=== PATIENT | female | born 1985 | race Caucasian/White ===

== ENCOUNTER 2016-08-23 03:18 | Observation (INO) | payer OTHER ==
[~2016-08-23] VITALS: Ht 170.2 cm; Wt 80.3 kg
[~2016-08-23 03:18] MED LIST: ALPRAZOLAM0.5 M4 PO; CYMBALTA60 M1 PO; GABAPENTIN300 M2 PO; VALTREX1000 MG PO; VICODIN 5-3001 EACH PO; XANAX0.5 M1 PO
--- NOTE | 2016-08-23 10:41 | Operative Report ---
Operative/Inv Procedure Report Surgery Date: 08/23/16 Name of Procedure: 1. Exploration of prior C6/7 ACDF 2. C5/6 ACDF with synthes PEEK cage, autograft, allograft, vectra titanium plate /screws Pre-Operative Diagnosis: C5/6 HNP with stenosis, myelopathy Post-Operative Diagnosis: same Estimated Blood Loss: less than 50ml Surgeon/Fluid Designer: BRIAN ROSA,Brian Santos MD Anesthesia: general endotracheal tube Monitors: neurophysiologic monitoring IV Fluids: 1 L crystalloid Implants: synthes Urine Output: 20cc via do Drains: small HALLIE Specimens: C5/6 disc material Complications: none Condition: stable Operative Indication: 31 yo s/p prior C6/7 ACDF who did very well but now presents with progressive central C5/6 HNP and new stenosis with cord compression and recurrent clinical myelopathy here for C5/6 ACDF, exploration of prior fusion. Operative/Procedure Note Note: Patient was taken the operating room. After appropriate patient identification, neurophysiologic monitoring leads were placed and baseline recordings were obtained. The patient underwent an fiberoptic intubation with a Nims tube with the neck in a neutral position. Following intubation. Monitoring was stable. The patient was positioned supine on the operating table with the neck gently extended on a donut and the shoulders retracted downward with tape. Following positioning, monitoring was rechecked and noted to be stable. Patient was given 2 g of IV kefzol in preoperative prophylaxis. A Do catheter was sterilely inserted. DVT prophylaxis was utilized throughout the case. The right ventral neck was widely prepped and draped in usual sterile fashion using povoiodine solution. Previous approach was via the left neck and both vocal cords were noted to be equally mobile on preop laryngoscopy. A transverse linear skin incision was marked beginning in the midline and extending to the left a proximally 3 cm. The C-arm fluoroscope was sterilely draped in the field and we confirmed that the planned incision was immediately overlying the C5/6 interspace. The skin was infiltrated with local anesthetic. Skin incision was made with a 10 blade knife dissection was carried down through the subcutaneous tissue with the Bovie to the platysma muscle. The platysma was elevated and divided. Subplatysmal planes were created rostrally and caudally to facilitate tissue mobilization. The medial aspect of the sternocleidomastoid muscle was identified. The overlying fascia was incised in a rostral caudal fashion. A combination of digital and blunt dissection was used medial to the sternocleidomastoid and lateral to the trachea and esophagus down to the prevertebral fascia. The carotid sheath was identified and retracted laterally under hand-held retractor. The crossing omohyoid muscle was reflected caudally. The prevertebral fascia was incised and swept off the ventral aspect of the vertebral bodies with a peanut. Disc spaces were identified. The previous surgical level had overlying scar which was cleared. The fusion was explored and noted to be solid. A small gauge spinal needle was placed superficially within the next rostral disc space and a lateral localizing x-ray was obtained and confirmed this to be the correct level. With the correct level verified, the disc space was marked with the Bovie and the longus coli muscles were reflected bilaterally. Self-retaining retractors were placed beneath the muscle. Once the retractors were in position, the endotracheal cuff was deflated and slowly reinflated against the retractors to minimize tracheal wall pressure. An annulotomy of C5/6 was performed with a 15 blade knife and a superficial discectomy was done with small straight and angled curettes and pituitary rongeurs. The osteophytes were removed with a [place] rongeur and the bone saved for subsequent arthrodesis to the back table. Milton pins were placed in the midpoint of the C5 and C6 vertebral bodies in the disc space was gently distracted under direct and fluoroscopic guidance. Following distraction of the disc space, neurophysiologic monitoring was rechecked and noted to be stable. Discectomy at C5/6 was completed under the scope using combination of small straight and angled curettes and pituitary rongeurs. The posterior longitudinal ligament was sequentially divided and removed with a 2mm Kerrison punch until an excellent decompression of the underlying thecal sac was accomplished from proximal foramen to proximal foramen. Once removal of all the disc material, the dural sac appeared nicely decompressed and we were able to appreciate CSF pulsations through a translucent dura. Once the decompression was completed, meticulous hemostasis was achieved using Surgifoam in the epidural space and a cottonoid vandana. All cartilaginous endplates were removed from C5 and C6 using combination of curettes and the Midas Quinn drill to prepare them for arthrodesis. Following the decompression, neurophysiologic monitoring was rechecked and noted to be stable. We then proceeded to arthrodesis and placement of the instrumentation. After appropriate trials, a 7 mm Synthes peek cage was selected and filled with demineralized bone matrix and morselized autograft from the osteophytectomy and gently tamped the cage into the C5/6 disc space under direct and fluoroscopic guidance and countersunk one or two mm. Once the cage was in position, we proceeded with placement of the screws. The Milton retractor was released compressing the cage between the respective vertebral bodies in the Milton pins were removed. A small amount of bone bleeding was easily controlled with bone wax. Four 14 mm screws were placed in the C5 and C6 vertebral body after piercing the bone with an awl and placing self drilling, self tapping screws. The screws were finally tightened applying the locking mechanism at 4 locations. Final x-rays were obtained and saved and showed excellent position of the interbody cage and instrumentation. The retractors were removed. Hand-held retractors were then placed back into the wound which was inspected and meticulous hemostasis is achieved prior to wound closure. A small HALLIE drain was placed into the wound and secured to the skin with a 2-0 nylon suture. The platysma muscle was reapproximated with interrupted 3-0 Vicryl suture. Skin was closed in layers with interrupted 3-0 Vicryl suture in the dermis and a running 4-0 Vicryl subcutaneous stitch in the skin. The wound was cleaned and dried. Steri-Strips and a sterile occlusive dressing was placed. The patient was placed in a cervical collar. She was awakened in the operating room, extubated, and taken to PACU in stable condition. She was noted to be moving all 4 extremities at the completion of the case. All sponge needle and instrument counts are correct at the completion of procedure 3. Neurophysiologic monitoring was stable throughout the case. Discharge Disposition: PACU skin. The wound was cleaned and dried. Steri-Strips and a sterile occlusive dressing was placed. The patient was placed in a soft cervical collar. She was awakened in the operating room, extubated, and taken to PACU in stable condition. She was noted to be moving all 4 extremities at the completion of the case. All sponge needle and instrument counts are correct at the completion of procedure 3. Neurophysiologic monitoring was stable throughout the case.
--- NOTE | 2016-08-23 11:01 | Operative Report ---
Operative/Inv Procedure Report Surgery Date: 08/23/16 Name of Procedure: C5/6 acdf, use of synthese intravertebral biomechanical device, anterior plating system, autograft, allograft, flouroscope, exploration of C6/7 fusion Pre-Operative Diagnosis: C5/6 hnp Post-Operative Diagnosis: same Estimated Blood Loss: less than 50ml Surgeon/First Officer: BRIAN ptit MD,SOLOMON Moreland Anesthesia: general endotracheal tube Operative/Procedure Note Note: After the successful administration of general endotracheal anesthesia all lines tubes and monitors were placed and the anesthesia team positioned the patient supine with her head gently extended and the skin incision the right anterior neck using the fluoroscope to plan the incision in the one of the skin creases. The patient was then prepped and draped in usual standard fashion and lidocaine with epinephrine was infiltrated in the subcutaneous tissues. A knife was used to make an incision in the right anterior neck this was deepened with Bovie cautery through the platysma, and dissection was carried down medial to the carotid sheath lateral to the trachea and esophagus. We identified the old anterior cervical plating system and dissected cranially elevated the longus coli bilaterally. We inspected the old ACDF site both visually and under the radiograph ensured there was a solid arthrodesis. We then placed [place] pins in the bodies of C5 and C6 provided gentle in-line distraction we used a 15 blade to incise the annulus remove the disc in totality with pituitaries and curettes. We used Kerrison punches to remove any anterior posterior osteophytes and saved for bone graft. We elevated the PLL and resected using a Kerrison punch. We were able to visualize the thecal sac ensured was thoroughly decompressed, we used a high-speed drill to remove any of the bony and cartilaginous endplates. We then trialed a 7 mm spacer fluoroscopic guidance this was the appropriate size was prepacked with morselized autograft and D mineralized bone matrix putty. We then secured a 14 mm plate with 16 mm screws, all hardware in excellent position based on the radiographs. Motors and sensors were stable. Bleeding was to minimum. The retractors were removed and the wound through separate stab incision a drain was left. The wound was then closed in layers, and the dry sterile dressing was applied. At the end the case all needle counts sponge and instrument correct, the patient was taken to recovery room in stable condition.
[2016-08-23 13:00] VITALS: BP 120/68
[2016-08-23 14:12] VITALS: BP 120/74
--- NOTE | 2016-08-23 14:44 | Admission Core Measures ---
Admission Lab Results I reviewed the following labs: Laboratory Tests 08/24 615 Urines Urine Test NEGATIVE Admission Meds I reviewed the following Meds: Current Medications Sig/Jack Start time Last Medication Dose Stop Time Status Admin Acetaminophen 650 MG Q4P PRN 08/23 1030 AC (Tylenol) Bisacodyl 10 MG DAILY NEEDED PRN 08/23 1030 AC (Dulcolax Supp) Cefazolin Sodium 2,000 MG ONCE 08/23 0000 NR (Kefzol-Ancef Inj) 08/23 2359 Diazepam 5 MG Q8P PRN 08/23 1030 AC (Valium) Docusate Sodium 100 MG BID 08/23 2200 AC (Colace) Famotidine 20 MG BID 08/23 2200 AC (Pepcid) Heparin Sodium 5,000 UNIT Q8 08/24 0600 AC (Porcine) Ondansetron HCl 4 MG Q6P PRN 08/23 1030 AC (Zofran) Oxycodone/ 2 TAB Q4P PRN 08/23 1030 AC 08/23 Acetaminophen 1244 (Percocet) Sodium Chloride 1,000 ML Q12H 08/23 1015 AC 08/23 (Normal Saline 0.9%) 08/24 1014 1213 Trimethobenzamide HCl 200 MG Q6P PRN 08/23 1030 AC (Tigan) Zolpidem Tartrate 2.5 MG AT BEDTIME NEED.. 08/23 1030 AC (Ambien) Acute Coronary Syndrome Inclusion Criteria ACS Diagnosis No Inpatient Core Measures LDL Reminder: If No, please order W/I first 24hr of stay Congestive Heart Failure Inclusion Criteria CHF Diagnosis No Cerebrovascular accident Inclusion Criteria CVA/TIA Diagnosis No Inpatient Core Measures Bedside Swallow Eval Reminder: If BSE failed, place ST order Antithrombotic Reminder: Order Antithrombotic Medication by end of day 2 Antithrombotic Reminder: Document Reason Antithrombotic Not ordered by end of day 2 AFIB/Flutter Reminder: If Present, add to problem list AFIB/Flutter Reminder: Order Anticoag Medication for pts with AFIB/Flutter Atherosclerosis Reminder: If Present, add to problem list LDL Reminder: If No, please order W/I first 24hr of stay PT Order Reminder: If No, please order Venous thromboembolism Inpatient Core Measures VTE Risk Factors: Surgery No Mech VTE prophylaxis d/t No contraindications No VTE Pharm Prophylaxis d/t Surgical contraindication Inclusion Criteria - Per Current guidelines, there needs to be overlap - treatment for the first 5 days of Warfarin therapy. - Parenteral Anticoagulation (IV or SC) needs to be - given along with Warfarin therapy. VTE Diagnosis No VTE Type NONE VTE Confirmed by (Test) NONE Problem List As ranked by this Provider includes Assessment & Plan 1. HNP (herniated nucleus pulposus), cervical 2. S/P cervical spinal fusion HOME MEDS Home Med List Alprazolam 0.5 MG TABLET 1 TAB PO PRN ANXIETY (Reported) Alprazolam (Xanax) 0.5 MG TABLET 0.5 MG PO D ANXIETY (Reported) Duloxetine HCl (Cymbalta) 60 MG CAPSULE.DR 1 CAP PO DAILY DEPRESSION ( Reported) Duloxetine HCl (Cymbalta) 60 MG CAPSULE.DR 1 TAB PO D DEPRESSION (Reported) Gabapentin 300 MG CAPSULE 1 TAB PO D NEUROPATHUY (Reported) Hydrocodone/Acetaminophen (Vicodin 5-300 MG Tablet) (Unknown Strength) TABLET (Unknown Dose) PO PRN PAIN (Reported) Hydrocodone/Acetaminophen (Vicodin 5-300 MG Tablet) 5 MG-300 MG TABLET 1 TAB PO PRN PRN PAIN (Reported) Hydrocodone/Acetaminophen (Vicodin 5-300 MG Tablet) 1 EACH TABLET 1-2 TAB PO Q4P PRN PAIN Valacyclovir HCl (Valtrex) 1,000 MG TABLET 1 TAB PO DAILY ANTIVIRAL (Reported ) Valacyclovir HCl (Valtrex) 1,000 MG TABLET 1 TAB PO DAILY ANTIVIRAL (Reported )
--- NOTE | 2016-08-23 14:48 | PN- Neurosurgical ---
See Addendum Subjective Subjective: POC S/P CERVICAL FUSION SITTING UP IN BED EATING LUNCH NO MAJOR ISSUES AT THIS TIME Objective Vital Signs and I&Os Vital Signs Date Time Temp Pulse Resp B/P B/P Pulse O2 O2 Flow FiO2 Mean Ox Delivery Rate 08/23 1420 Nasal 2.0L Cannula 08/23 1412 98.2 90 20 120/74 97 08/23 1300 98.0 72 18 120/68 99 Nasal 2.0L Cannula 08/23 1214 99 Nasal 2.0L Cannula Intake & Output 08/23 1600 08/23 0800 08/23 0000 08/22 1600 08/22 0800 08/22 0000 Intake Total 680 Output Total 300 Balance 380 Intake, Oral 680 Output, Urine 300 Patient 177 lb Weight Physical Exam: CV: RRR LUNGS: CLEAR ABD: SOFT, +BS EXT: BILAT UE GROSSLY INTACT DRSG DRY ROSIE: minimal sanguinous drainage Assessment/Plan Assessment/Plan neuro stable plan collar at all time iv abx for 24 hours monitor rosie drain output qshift titrate pain meds advance diet as tolerated Core Measures/Miscellaneous Venous Thromboembolism VTE Risk Factors: Surgery VTE Contraindications: No Contraindications VTE Diagnosis: No VTE Type: NONE VTE Confirmed by (Test): NONE Beta Jerson Is Beta Jerson a Home Med? No Antibiotics Is Patient on Antibiotics? Yes
--- NOTE | 2016-08-23 15:52 | NUR ---
PT STATING PAIN 7/10 TO NECK, STATED THAT SHE HAS RECIEVED DILAUDID IN THE PAST WHICH WORKS BETTER FOR PER COMPARED TO PERCOCET. CALL PLACED TO SURGICAL PA COLTON
[2016-08-23 16:11] VITALS: BP 122/80
--- NOTE | 2016-08-23 17:50 | NUR ---
CALLED TO ROOM AT THIS TIME BY MST, STATED THAT PATIENT HAD JUST VOMITTED. NURSE DID NOT VISUALIZE VOMIT, PT STATED IT WAS "A LOT" "ALL OF MY LUNCH" STATED "I FEEL MUCH BETTER NOW". PT PREVIOUSLY STATED THAT WHEN SHE HAS RECIEVED DILAUDID IN THE PAST SHE WOULD EXPERIENCE NAUSEA AND SOMETIMES VOMITING. ZOFRAN WAS GIVEN AT THE TIME OF DILAUDID ADMINISTRATION. STATING THAT PAIN "A LOT BETTER THAN BEFORE" WILL CONTINUE TO MONITOR.
[2016-08-23 17:52] VITALS: BP 140/72
[2016-08-23 22:04] VITALS: BP 132/62
[2016-08-24 02:15] VITALS: BP 130/60
[2016-08-24 06:50] VITALS: BP 130/60
--- NOTE | 2016-08-24 07:33 | PN- Neurosurgical ---
Subjective Subjective: Pt doing well this am. Had nausea last night with iv dilaudid but justo po dilaudid without issues. Pain controlled this am. swallowing liquids. Objective Vital Signs and I&Os Vital Signs Date Time Temp Pulse Resp B/P B/P Pulse O2 O2 Flow FiO2 Mean Ox Delivery Rate 08/24 0650 98.5 93 20 130/60 97 Room Air 08/24 0215 97.9 69 20 130/60 99 Room Air 08/24 0000 99 Nasal 2.0L Cannula 08/23 2204 97.9 76 20 132/62 99 Nasal Cannula 08/23 1752 97.8 79 20 140/72 99 Nasal Cannula 08/23 1611 97.8 77 20 122/80 98 Nasal Cannula 08/23 1420 Nasal 2.0L Cannula 08/23 1412 98.2 90 20 120/74 97 08/23 1300 98.0 72 18 120/68 99 Nasal 2.0L Cannula 08/23 1214 99 Nasal 2.0L Cannula Intake & Output 08/24 0800 08/24 0000 08/23 1600 08/23 0800 08/23 0000 08/22 1600 Intake Total 820 640 680 Output Total 400 900 300 Balance 420 -260 380 Intake, IV 640 640 Intake, Oral 180 680 Output, Urine 400 900 300 Patient 80.286 kg Weight Physical Exam: AF, VSS awake and alert voice clear without hoarseness, swallow intact neuro exam is normal all 4 extrem incision is c,d,i, scant in HALLIE, soft to palpation voiding on own Current Medications: Current Medications Sig/Jack Start time Last Medication Dose Route Stop Time Status Admin Acetaminophen 1,000 MG Q6H 08/23 1815 AC 08/24 N/A 1 UNIT IV 08/24 1229 0537 Acetaminophen 650 MG Q4P PRN 08/23 1030 DC PO Bisacodyl 10 MG DAILY NEEDED PRN 08/23 1030 AC NM Cefazolin Sodium 2,000 MG ONCE 08/23 0000 DC IV 08/23 2359 Diazepam 5 MG Q8P PRN 08/23 1030 AC 08/23 PO 2327 Docusate Sodium 100 MG BID 08/23 2200 AC 08/23 PO 2139 Famotidine 20 MG BID 08/23 2200 AC 08/23 PO 213 Heparin Sodium 5,000 UNIT Q8 08/24 0600 AC 08/24 (Porcine) SC 0533 Hydromorphone HCl 2 MG Q4P PRN 08/23 1600 AC PO Hydromorphone HCl 4 MG Q4P PRN 08/23 1600 AC 08/24 PO 0418 Hydromorphone HCl 1 MG Q2-3 HRS NEEDED.. 08/23 1600 AC 08/23 IV 1626 Ondansetron HCl 4 MG Q6P PRN 08/23 1030 AC 08/23 IV 2223 Oxycodone/ 2 TAB Q4P PRN 08/23 1030 DC 08/23 Acetaminophen PO 1244 Sodium Chloride 1,000 ML Q12H 08/23 1015 AC 08/23 IV 08/24 1014 1950 Trimethobenzamide HCl 200 MG Q6P PRN 08/23 1030 AC IM Zolpidem Tartrate 2.5 MG AT BEDTIME NEED.. 08/23 1030 AC PO Results Last 48 Hours of Labs: Laboratory Tests 08/23 0616 Urines Urine Test NEGATIVE Assessment/Plan Assessment/Plan Pt POD1 s/p C5/6 ACDF and doing well. Neurologically intact. Plan: -dc HALLIE, abx -ambulate this am -soft mechanical diet -home later today -dc instructions given -fu 2 weeks Core Measures/Miscellaneous Venous Thromboembolism VTE Risk Factors: Surgery VTE Contraindications: No Contraindications VTE Diagnosis: No VTE Type: NONE VTE Confirmed by (Test): NONE Beta Jerson Is Beta Jerson a Home Med? No Antibiotics Is Patient on Antibiotics? Yes Attending MD Review Statement Attending Statement Attending MD Statement: examined this patient, discuss w/resident/PA/CHAIR FINISHER, discussed w/nursing
[2016-08-24] MEDS ORDERED: DILAUDID4 M1 PO (07:37)
--- NOTE | 2016-08-24 07:58 | Patient Discharge Instructions ---
Discharge Instructions General Discharge Information You were seen/treated for: Cervical disc herniation You had these procedures: C5-C6 ACDF Watch for these problems: Redness, drainage, temps >101.5, inability to speak, difficulty breathing, new onset of numbness/tingling. Other wound care: You may shower but keep please place an occlusice dressing on the incision. No swimming until the incision is fully healed. Keep the Steri-stips on until you follow-up with Dr. Murdock. Special Instructions: May wear solft collar at night. Diet Continue normal diet: No Recommended Diet: Bariatric (soft foods) Activity Full Activity/No Limits: No Acute Coronary Syndrome Inclusion Criteria At DC or during hospital stay patient has or had the following: ACS DIAGNOSIS No Discharge Core Measures Meds if any: Prescribed or Continued at Discharge Meds if any: NOT Prescribed or Continued at Discharge Congestive Heart Failure Inclusion Criteria At DC or during hospital stay patient has or had the following: CHF DIAGNOSIS No Discharge Core Measures Meds if any: Prescribed or Continued at Discharge Meds if any: NOT Prescribed or Continued at Discharge Cerebrovascular accident Inclusion Criteria At DC or during hospital stay patient has or had the following: CVA/TIA Diagnosis No Discharge Core Measures Meds if any: Prescribed or Continued at Discharge Meds if any: NOT Prescribed or Continued at Discharge Venous thromboembolism Inclusion Criteria VTE Diagnosis No VTE Type NONE VTE Confirmed by (Test) NONE Discharge Core Measures - Per Current guidelines, there needs to be overlap - treatment for the first 5 days of Warfarin therapy. - If discharged on Warfarin prior to 5 days of - overlap therapy, the patient will need to be - assessed for post discharge needs including - *Post discharge parental anticoagulation - *Warfarin and/or parental anticoagulation education - *Follow up date to check INR post discharge At least 5 days overlap therapy as Inpatient No Meds if any: Prescribed or Continued at Discharge Note: Overlap Therapy is Warfarin and Anticoagulant Meds if any: NOT Prescribed or Continued at Discharge
[2016-08-24] MEDS ORDERED: ZOFRAN4 M2 PO (08:05)
[2016-08-24] MEDS ORDERED: VALIUM5 M2 PO (08:05)
--- NOTE | 2016-08-24 11:05 | Surg Short-stay <48hrs Dis Sum ---
See Addendum Visit Information Visit Dates Admission Date: 08/23/16 Discharge Date: 08/24/16 Surgical Short Stay DC Summary Admission Diagnosis: C5/6 HNP with stenosis, myelopathy Final Diagnosis: As above Procedure(s): 1. Exploration of prior C6/7 ACDF 2. C5/6 ACDF with synthes PEEK cage, autograft, allograft, vectra titanium plate /screws Summary/Significant Findings: The patient was seen, signed and consented prior to the surgery. She was taken to the OR for the above mentioned procedures. For a full detailed summary, please refer to the op-report. She was transferred to the floor where she continured to recover. She did well overnight and her pain was well tolerated after her PO Percocet was changed to PO Dilaudid. She was able to spontaneously void and tolerated a soft diet. She was able to ambulate on her own. She denied any new onset of numbness or tingling. Her HALLIE drain had some scant outout and was removed in the AM. She was found stable to be discharged home the following morning after Dr. Murdock seen and examined the patient. Condition at Discharge: Stable Discharge Disposition: home or self care Discharge instructions provided to patient/family: Yes Post discharge follow-up plan: Follow-up with Dr. Murdock in 2 weeks Soft collar at night [place] collar during the day Soft diet may shower with an occlusive dressing and change if it get saturated.
== END 2016-08-24 10:46 ==
LOC: STS 03:18 → EDSTATUS 07:00 → STS 07:00 → 2NA 10:02 → PACUH 10:02 → ENRESERV 10:28 → ENTRNSPT 11:07 → EDTRNSPTSTS 11:44 → CMPTRNSPT 11:51 → 2NA 11:55 → ENPENDDIS 08-24 09:42 → 2NA 08-24 10:46
PROVIDERS: ADMIT Neurological Surgery
DX: M50.222 Other cervical disc displacement at C5-C6 level (principal); K58.9 Irritable bowel syndrome, unspecified; F41.9 Anxiety disorder, unspecified; F32.9 Major depressive disorder, single episode, unspecified; M54.10 Radiculopathy, site unspecified; K90.0 Celiac disease
CPT/HCPCS: 36415; 72020; 81025; 87086; 88304; 96372; 96374; 96375; C1713; J0131; J0690; J1170; J1644; J2405; J3250